=== PATIENT | female | born 1990 | race Caucasian/White ===

== ENCOUNTER 2019-03-25 17:17 | Emergency (ER) | payer OTHER ==
[~2019-03-25] VITALS: Ht 154.9 cm; Wt 81.6 kg
[2019-03-25] MEDS ORDERED: ZOLOFT25 MG (17:32)
[2019-03-25] MEDS ORDERED: DIPROSONE OINT.15 GM TOP (19:41)
[2019-03-25] MEDS ORDERED: TRIAMCINOLONE A15 G4 TOP (19:41)
[2019-03-25] MEDS ORDERED: CETAPHIL MOISTU85 GM TOP (19:41)
== END 2019-03-25 20:06 | disposition home or self-care (01) ==
LOC: ER 17:17
DX: L20.89 Other atopic dermatitis (principal)

== ENCOUNTER 2023-04-23 19:40 | Emergency (ER) | payer OTHER ==
[~2023-04-23] VITALS: Ht 154.9 cm; Wt 93.4 kg
[~2023-04-23 19:40] MED LIST: CETAPHIL MOISTU85 GM TOP; DIPROSONE OINT.15 GM TOP; TRIAMCINOLONE A15 G4 TOP; ZOLOFT25 MG
[2023-04-23] MEDS ORDERED: FAMOTIDINE/PF 20 MG in 0.9 % SODIUM CHLORIDE 8 ML IV PUSH STA (20:37)
[2023-04-23] MEDS ORDERED: 0.9 % SODIUM CHLORIDE 1,000 ML IV SCH (20:45)
[2023-04-23] MEDS ORDERED: DIPHENOXYLATE HCL/ATROPINE 1 UDTAB TABLET PO ONE (20:45)
[2023-04-23] MEDS ORDERED: METRONIDAZOLE/SODIUM CHLORIDE 500 MG/100 ML PIGGYBACK IV ONE (20:45)
[2023-04-23 21:20] LABS: HEMATOCRIT 39.2 % (36.0-45.00); MEAN CELL VOLUME 79.6 fL (80.00-100.00); MEAN CORPUSCULAR HEMOGLOBIN 26.5 pg (27.00-32.0); MEAN CORPUSCULAR HGB CONC 33.3 g/dl (32.0-36.0); PLATELET COUNT 270 K/uL (150-450); RED BLOOD COUNT 4.92 M/uL (4.00-6.00)
[2023-04-23 21:58] LABS: ALBUMIN 3.6 gm/dL (3.4-5.0); BILIRUBIN TOTAL 0.23 mg/dL (0.3-1.2); CREATININE SERUM 0.78 mg/dL (0.55-1.02); GFR 86.14; GLOBULINA 4.5 G/DL (2.4-3.5); POTASSIUM 3.68 mEq/L (3.5-5.1); TOTAL PROTEIN 8.1 gm/dL (6.4-8.2)
[2023-04-23] MEDS ORDERED: KETOROLAC TROMETHAMINE 30 MG VIAL IV ONE (23:15)
[2023-04-23] MEDS ORDERED: METRONIDAZOLE500 MG PO (23:41)
[2023-04-23] MEDS ORDERED: PEPCID AC20 MG PO (23:41)
[2023-04-23] MEDS ORDERED: LEVSIN/SL0.125 MG SL (23:41)
== END 2023-04-24 00:15 | disposition home or self-care (01) ==
LOC: ER 19:40
PROVIDERS: General Practice
DX: R19.7 Diarrhea, unspecified (principal); Z91.013 Allergy to seafood

== ENCOUNTER 2023-10-28 12:02 | Emergency (ER) | payer OTHER ==
[~2023-10-28] VITALS: Ht 154.9 cm; Wt 93.4 kg
[~2023-10-28 12:02] MED LIST changes: +LEVSIN/SL0.125 MG SL; +METRONIDAZOLE500 MG PO; +PEPCID AC20 MG PO
[2023-10-28] MEDS ORDERED: KETOROLAC TROMETHAMINE 60 MG VIAL IM ONE ×2 (14:45→15:05)
[2023-10-28] MEDS ORDERED: TRIAMCINOLONE ACETONIDE 40 MG/ML VIAL IM ONE (14:45)
[2023-10-28] MEDS ORDERED: TRIAMCINOLONE ACETONIDE 40 MG/ML VIAL ONE (15:04)
[2023-10-28] MEDS ORDERED: DICLOFENAC SODI75 MG PO (16:15)
== END 2023-10-28 16:25 | disposition home or self-care (01) ==
LOC: ER 12:04
DX: M75.32 Calcific tendinitis of left shoulder (principal); M25.512 Pain in left shoulder; Z91.013 Allergy to seafood

== ENCOUNTER 2024-09-20 08:16 | Day surgery (SDC) | payer OTHER ==
[~2024-09-20 08:16] MED LIST changes: +DICLOFENAC SODI75 MG PO
[2024-09-20] MEDS ORDERED: SUGAMMADEX SODIUM 200 MG/2 ML VIAL IV ONE (11:45)
[2024-09-20] MEDS ORDERED: CEFTRIAXONE SODIUM 2,000 MG VIAL IV ONE (11:45)
[2024-09-20] MEDS ORDERED: HEMOSTATIC MATRIX 1 KIT KIT TOP ONE (11:45)
[2024-09-20] MEDS ORDERED: POVIDONE-IODINE 118 ML BOTT TOP ONE (11:45)
[2024-09-20] MEDS ORDERED: METRONIDAZOLE/SODIUM CHLORIDE 500 MG/100 ML PIGGYBACK IV ONE (11:45)
[2024-09-20] MEDS ORDERED: BUPIVACAINE HCL 30 ML VIAL IV ONE (11:45)
[2024-09-20] MEDS ORDERED: EPINEPHRINE HCL IV ONE (11:45)
[2024-09-20] MEDS ORDERED: EPINEPHRINE HCL/PF 1 MG/ML AMPUL IV ONE (12:00)
[2024-09-20] MEDS ORDERED: ONDANSETRON HCL 2 MG/ML VIAL IV PRN (14:00)
[2024-09-20] MEDS ORDERED: MORPHINE SULFATE 4 MG/ML CARTRIDGE IV PRN (14:00)
[2024-09-20] MEDS ORDERED: OxyCODONE HCL 5 MG TABLET (ROXICODONE) PO PRN (14:00)
[2024-09-20] MEDS ORDERED: ACETAMINOPHEN 500 MG GEL..CAP PO SCH (14:00)
[2024-09-20] MEDS ORDERED: RINGERS SOLUTION,LACTATED 1,000 ML IV SCH (14:00)
[2024-09-20] MEDS ORDERED: MORPHINE SULFATE 4 MG/ML VIAL IV ONE (14:20)
[2024-09-20] MEDS ORDERED: INTESTINEX680 M1 PO (16:28)
[2024-09-20] MEDS ORDERED: CELECOXIB200 MG PO (16:28)
[2024-09-20] MEDS ORDERED: NEURONTIN300 MG PO (16:28)
[2024-09-20] MEDS ORDERED: PERCOCET 5-3251 EACH PO (16:49)
[2024-09-20] MEDS ORDERED: METOCLOPRAMIDE HCL 5 MG/ML VIAL IV SCH (17:00)
[2024-09-20] MEDS ORDERED: GABAPENTIN 300 MG CAPSULE PO SCH (17:00)
[2024-09-20] MEDS ORDERED: HYOSCYAMINE SULFATE 0.125 MG TAB.SUBL SL SCH (17:00)
[2024-09-20] MEDS ORDERED: KETOROLAC TROMETHAMINE 30 MG VIAL IM SCH (18:00)
[2024-09-20] MEDS ORDERED: FAMOTIDINE/PF 20 MG/2 ML VIAL IV PUSH SCH (21:00)
[2024-09-21] MEDS ORDERED: LACTOBACILLUS ACIDOPHILUS 1 CAP CAP PO SCH (09:00)
[2024-09-21] MEDS ORDERED: ENOXAPARIN SODIUM 40 MG/0.4 ML SYRINGE SUBCUTANEO SCH (17:00)
[2024-09-22] MEDS ORDERED: ENOXAPARIN SODIUM 40 MG/0.4 ML SYRINGE SUBCUTANEO SCH (09:00)
== END 2024-09-20 17:45 | disposition home or self-care (01) ==
LOC: CIR.AMB 08:16
PROVIDERS: ATTEND Surgery
DX: N81.6 Rectocele (principal); K60.1 Chronic anal fissure; Z91.041 Radiographic dye allergy status; Z91.013 Allergy to seafood